=== PATIENT | female | born 1945 | race Caucasian/White ===

== ENCOUNTER 2022-07-25 10:11 | Observation (INO) ==
--- NOTE | 2022-07-07 14:19 | PAT Medication Instructions ---
Medication Instructions Date of Service July 07, 2022 Home Medications Prevagen 1 dose PO QAM calcium carbonate 500 mg calcium (1,250 mg) tablet 500 mg PO DAILY coenzyme Q10 100 mg capsule (Co Q-10) 100 mg PO QAM horse chestnut 300 mg capsule 300 mg PO QAM lutein 40 mg capsule 40 mg PO QAM PreserVision AREDS-2) 1 tab PO BID Tart Thapa) 1 cap PO DAILY STOP taking 2 weeks before surgery (or as soon as possible if surgery is within 2 weeks) Prevagen 1 dose PO QAM coenzyme Q10 100 mg capsule (Co Q-10) 100 mg PO QAM horse chestnut 300 mg capsule 300 mg PO QAM lutein 40 mg capsule 40 mg PO QAM PreserVision AREDS-2) 1 tab PO BID Tart Thapa) 1 cap PO DAILY DO NOT take the morning of surgery calcium carbonate 500 mg calcium (1,250 mg) tablet 500 mg PO DAILY Other Notes If you have any questions please call us at [phone] or [phone] or [phone] or [phone]
--- NOTE | 2022-07-13 10:24 | Anesthesiology Consultation ---
Date of Service July 13, 2022 Assessment & Plan (1) Encounter for pre-operative examination: Chart Review Chart Review: Acceptable Risk for Surgery and Patient seen in Pre Admission Testing -Pt is NOT an Outpatient Joint candidate due to age Per PAT appt on 07/13/22, patient denies any recent travel or large group activities. Pt is vaccinated for Covid. Will leave to surgeon's discretion if preop Covid testing needed. Educated on importance of using Covid precautions one week prior to surgery Teaching & Discussion Pre-Anesthesia Teaching/Discussion Notes: Instructed NPO after midnight before surgery,except medications with 15 cc of water. Medication instructions provided according to the PAT guidelines. History Surgery Operation Date: 07/25/22 08:50 Proposed Procedures p Left Total Knee Arthroplasty - Dru Carmichael MD Height/Weight Height: 5 ft 3 in Weight: 65.4 kg Allergies Allergy/AdvReac Type Severity Reaction Status Date / Time No Known Allergies Allergy Verified 07/07/22 12:49 Medications Home Medications Medication Instructions Recorded Confirmed Last Taken Prevagen 1 dose PO QAM 07/07/22 07/07/22 Unknown calcium carbonate 500 mg calcium 500 mg PO DAILY 07/07/22 07/07/22 Unknown (1,250 mg) tablet coenzyme Q10 100 mg capsule (Co 100 mg PO QAM 07/07/22 07/07/22 Unknown Q-10) horse chestnut 300 mg capsule 300 mg PO QAM 07/07/22 07/07/22 Unknown lutein 40 mg capsule 40 mg PO QAM 07/07/22 07/07/22 Unknown vit C 250 mg-vit E 90 mg-zinc 40 1 tab PO BID 07/07/22 07/07/22 Unknown mg-copper 1 [id number] capsule (PreserVision AREDS-2) vit C 30 mg-s.thapa 250 mg-celery 1 cap PO DAILY 07/07/22 07/07/22 Unknown seed 75 mg-grape seed extrt capsule (Tart Thapa) Past Medical History Medical History Arthritis Varicose veins of both lower extremities Stable Exercise / Class Metabolic Activity II 4-5 Yardwork/Stairs/Walk up hill (one flight of stairs - no chest pain or SOB) Past Family History Family History Mother Myocardial infarction Father Myocardial infarction Past Surgical History Surgical History History of arthroscopy left shoulder History of section x3 History of colonoscopy History of tooth extraction with implant Past Anesthesia History No Hx of Anesthesia Complications and No Family Hx of Anesthesia Complications History of PONV No Hx of PONV and No Hx of Motion Sickness Social History Smoking Status: Never smoker Do You Dip or Chew Tobacco: No Hx Alcohol Use: No Hx Substance Use: No substance use type: does not use Review of Systems Occ snoring- no hx of sleep study Patient denies chest pain, shortness of breath, dyspnea on exertion, reflux, cough, wheezing, palpitations. No hx of seizures, stroke, CA. No hx of blood clots or blood transfusions Physical Exam Vital Signs VITALS BP 143/72 P 62 TEMP 98.2 SP02 99% RESP 16 Constitutional no acute distress ENMT Mouth: no TMJ clicking Thyromental Distance: > or= 3.5 Finger Breadths (3.5) Mallampati Class: II Permanent implant to left side Neck neck extension not limited Respiratory normal respiratory effort; no respiratory distress Auscultation: lungs clear to auscultation bilaterally; no wheezes Cardiovascular Rate/Rhythm: regular rate and regular rhythm Heart Sounds: no murmur Vessels: no carotid bruit Musculoskeletal Spine: no pain with cervical ROM Extremities: extremities normal to inspection Psychiatric Orientation: alert Lab Results Anesthesia Preop Results Results Anesthesia Widget: WBC 7.32 K/ul (4.8-10.8) 07/13/22 Hgb 13.5 g/dl (12.0-16.0) 07/13/22 Hct 42.0 % (37.0-47.0) 07/13/22 Plt 312 K/uL (130-400) 07/13/22 Na 140 mmol/L (136-145) 07/13/22 K 4.6 mmol/L (3.5-5.1) 07/13/22 Cl 104 mmol/L (98-107) 07/13/22 CO2 31 mmol/L (21-32) 07/13/22 BUN 13 mg/dl (6-23) 07/13/22 Creat 0.79 mg/dl (0.6-1.2) 07/13/22 Glucose Level 90 mg/dl (70-99(Fasting)) 07/13/22 PT 10.9 Seconds (9.0-12.0) 07/13/22 PTT 26.8 Seconds (21.0-31.0) 07/13/22 INR 1.0 (0.9-1.1) 07/13/22 Blood Type O Negative 07/13/22 Antibody Screen NEGATIVE 07/13/22 Testing Electrocardiogram Date: 07/13/22 SR with 1st degree AVB at 60bpm Otherwise normal EKG per cardio Chest X-Ray Date: 07/13/22 Findings: + NAD FINDINGS: Cardiac mediastinal and hilar silhouettes are within normal limits. Atherosclerosis of aorta. Unchanged mild biapical pleural thickening. No pneumothorax, pleural effusion, airspace consolidation or pulmonary edema. Bones of the chest appear grossly intact with mild spondylitic spurring of the spine. COVID-19 Risk Screen Screening Information COVID-19 Screen Date: 07/13/22 Exposure 21 Days Family/Household +COVID Last 21 Days: No Exposure 10 Days Any COVID Exposure Last 10 Days: No Symptoms Last 10 Days Experienced COVID Sx Last 10 Days: No + COVID 0-90 Days COVID + in Last 0-90 Days: No Risk Plan COVID Risk Plan: No Risk Identified Patient Education COVID Preop Screening Education Complete: Yes
[~2022-07-25 10:11] MED LIST: ACETAMINOPHEN 500 MG TAB PO SCH; BUPIVACAINE 0.5 % 5 MG/1 ML PF 10ML VIAL ONE; BUPIVACAINE LIPOSOME/PF 266 MG, BUPIVACAINE/EPINEPHRINE 50 ML, SODIUM CHLORIDE 0.9% PF ... INFIL SCH; CeleBREX 200 MG CAP PO SCH; DEXAMETHASONE SOD INJ 4 MG/ML VIAL IV SCH; FAMOTIDINE 20 MG TAB PO SCH; General Order Problem(s) SCH; LR 500ML BOLUS, THEN 15ML/HR IV SCH; LR 60ML/HR IV SCH; METOCLOPRAMIDE HCL 10 MG TABLET PO SCH; ROPIVACAINE 0.5% 5 MG/ML 30 ML VIAL ONE; TRANEXAMIC ACID 1,000 MG **IV Intra-op IV SCH; ceFAZolin 2000MG 2,000 MG/15 ML SYR IV SCH; dexAMETHasone 10 MG in SYRINGE 0 ML IV SCH
--- NOTE | 2022-07-25 10:27 | History & Physical Bridge Note ---
Date of Service July 25, 2022 History & Physical Bridge Note I have examined the patient, reviewed the History & Physical and in the interval since the performance of the History & Physical I have noted the following changes of clinical significance: no changes noted
[2022-07-25] MEDS ORDERED: SODIUM CHLORIDE 0.9% PF 50 ML VIAL ONE (10:30)
[2022-07-25] MEDS ORDERED: fentaNYL citrate PF 100 MCG/2 ML VIAL ONE (10:30)
[2022-07-25] MEDS ORDERED: BUPIVACAINE LIPOSOME 1.3% 266 MG/20 ML VIAL ONE (10:30)
[2022-07-25] MEDS ORDERED: BUPIVACAINE/EPINEPHRINE 0.25% 1:200,000 30 ML VIAL ONE (10:30)
[2022-07-25] MEDS ORDERED: MIDAZOLAM HCL 1 MG/ML 2ML VIAL ONE (10:30)
[2022-07-25] MEDS ORDERED: LIDOCAINE 2% MPF LOCAL 5 ML VIAL ONE (10:31)
[2022-07-25] MEDS ORDERED: PROPOFOL IV EMULSION 10 MG/ML 20 ML VIAL IV ONE (10:31)
[2022-07-25] MEDS ORDERED: ONDANSETRON INJ 2 MG/ML 2 ML VIAL IV PRN ×2 (11:41→15:58)
[2022-07-25] MEDS ORDERED: ePHEDrine sulfate 50 MG/ML AMP IV PRN (11:41)
[2022-07-25] MEDS ORDERED: ATROPINE SULFATE 0.1 MG/ML 10ML SYR IV PRN (11:41)
[2022-07-25] MEDS ORDERED: fentaNYL citrate PF 100 MCG/2 ML VIAL IV PRN (11:41)
[2022-07-25] MEDS ORDERED: ePHEDrine sulfate 50 MG/ML SYR ONE (12:51)
--- NOTE | 2022-07-25 14:19 | Operative Report ---
PG Post Operative Report Pre & Post Diagnosis Operation Date: 07/25/22 12:30 Pre-Op Diagnosis: Left Knee Degenerative Joint Disease Post-Op Diagnosis: Left Knee Degenerative Joint Disease I identified the patient and participated in the time-out.: Yes Procedure Operation Date: 07/25/22 12:30 Actual Procedures p Left Total Knee Arthroplasty, Cemented(Left) - Dru Carmichael MD Surgeon Dru Carmichael MD [employer] Santi Mckinnon PA-C Estimated Blood Loss 50 Findings Consistent with Post-Op Diagnosis Operative findings revealed advanced left knee DJD. As she had extensive grade 4 [id number]-[id number] disease of the medial and patellofemoral compartments. She had a varus deformity to her knee. Large knee joint effusion. Specimens Left knee sent for pathology Anesthesia Type Spinal MAC Complications none Disposition Accompanied Patient To Recovery: No Indications Patient 76-year-old female has several year history of increasing left knee pain discomfort which which has become unresponsive to conservative care. X-rays show advanced left knee DJD. She failed conservative measures and elected proceed with left total knee arthroplasty. Description of Procedure Operative implants consist of: 1 Biomet Vanguard size 62.5 left posterior stabilized femoral component. 2. Biomet size 67 tibial tray. 3. 10 mm posterior stabilized polyethylene insert. 4. 28 x 8 all poly patella. The patient was taken the operating, identified, and placed on the operating table supine position but all contractors were appropriately padded. IV antibiotics were provided by the anesthesia team. A left thigh high tourniquet was placed. The left lower extremity was then prepped and draped in usual sterile fashion. The left leg was elevated exsanguinated with use of an Esmarch and the tourniquet was placed at 300 mmHg. An anterior approach the left knee was then performed through a longitudinal incision centered over the patella. Sharp dissection was carried through subcutaneous tissue down the extensor mechanism. A medial parapatellar arthrotomy incision was made. Some subperiosteal dissection was carried out medially. The fat pad was resected from Neath patella tendon. The lateral patellofemoral ligament was released. Patella subluxated laterally and the knee was flexed. The osteophytes taken off distal femur. The ACL and PCL then released and the distal femur and the tibia subluxated anteriorly. The external tibial alignment jig was then placed in the interface the tibia and adjusted 14 mm medially. Proximal tibial cut was made remove about a millimeter of bone from most deficient aspect of the medial tibial plateau. The tibia was sized to a size 67. Attention drawn the femur. The distal femur stem with a sharp drill. Intramedullary canal was suction. A right 5 degree valgus cutting guide was placed. The distal femoral cutting block was pinned in place. Distal femoral cut was made to take an additional 3 mm of bone off distal femur. The femur was then sized to a size 62.5. The AP cutting block was pinned parallel to the epicondylar axis which was 3 degrees of external rotation. Anterior cut, anterior, posterior cut, posterior chamfer cuts were made. The box cutting guide was placed in just slight lateral and the box cut was made. The knee was flexed. The remnants of the medial and lateral menisci were excised. The osteophytes taken off the posterior aspect the femur. A trial femoral component was placed. The tibial tray was pinned in maximum external rotation and the drill and stem punch used to create defect in proximal tibia for the tibial tray. The knee was then trialed and the 10 mm insert fit most appropriately. Attention drawn to the patella. The patella was cleaned of all soft tissues. Patella thickness measured 18 mm in thickness was cut down to 12. It was sized to a size 28 patella. The lug holes were drilled for the 28 patella. The lateral osteophyte was removed. Patella button was placed. Knee was taken through range of motion and the patella tracked nicely with no thumbs test. Attention drawn to place the permanent components. Nupathe all trial components were removed. Bone plug was placed in the distal femur limit blood loss. Double batch Palacos G cement was mixed. A Biomet Vanguard size 62.5 left posterior stabilized femoral component, size 67 tibial tray, a 10 mm posterior stabilized polyethylene insert, and a 28 x 8 all Paller patella then cemented in place. Knee was brought out in full extension till cement hardened. Final cement check was then performed. The pericapsular tissues were injected with total 100 cc of combination of 20 cc of Exparel, 30 cc normal saline, 50 cc of quarter percent Marcaine with epinephrine. Patient did receive 1 g tranexamic acid. The tourniquet was let down for final tourniquet time 55 minutes. Hemostasis assured with electrocautery. Extensor mechanism closed with combination 1 PDS suture #1 Vicryl suture in a [id number] fashion. Extensor mechanism checked found to be intact the subcutaneous tissue then closed with 2 Dexon suture in a buried interrupted fashion and the skin was closed skin dominique. Leg was then cleaned and dried a sterile dressing was Xeroform, 4 fours, sterile cast padding, Tavo bandage were applied. Patient then transferred to the recovery room in stable condition. The patient tolerated procedure well and there are no complications. Santi Mckinnon, my physician lead assistant manager, was present for the entire procedure. His assistance was essential and required for appropriate patient positioning, prepping and draping, surgical exposure, performing the technical details of the operation, placement the implants, closure of the wound, and placement of the sterile bandage. I attest to the content of the Intraoperative Record and any orders documented therein. Any exceptions are noted below.
--- NOTE | 2022-07-25 15:03 | XRay Report ---
XR knee LT 1 or 2V routine HISTORY: 76 years-old Female Surgical Post Op status post knee total joint arthroplasty. COMPARISON: 07/03/2022 TECHNIQUE: 2 views of the left knee FINDINGS: Total joint arthroplasty with patellar resurfacing. Anterior midline skin dominique are noted along wit h expected postoperative soft tissue swelling and deep tissue air. No acute fracture, dislocation or opaque foreign body. IMPRESSION: Expected postoperative changes. ACT 112: Negative or not required by law. The above report was generated using voice recognition software. It may contain grammatical, syntax o r spelling errors. Electronically signed by: Moises Farooq M.D. 07/25/2022 3:01 PM
--- NOTE | 2022-07-25 15:42 | Anesthesiology Progress Note ---
Date of Service July 25, 2022 Anesthesia Post Procedure Vital Signs Vital Signs: Temp Pulse Pulse Resp BP Pulse Ox O2 Del Method 07/25/22 15:40 64 16 123/64 98 Room Air 07/25/22 15:30 97.3 F L 67 17 120/60 99 Room Air 07/25/22 15:20 55 L 13 126/58 L 96 Room Air 07/25/22 15:10 61 16 116/59 L 96 Room Air 07/25/22 15:00 61 16 120/50 L 98 Room Air 07/25/22 14:50 71 13 112/67 99 Room Air 07/25/22 14:40 67 17 111/75 97 Room Air 07/25/22 14:30 61 12 130/53 L 97 Room Air 07/25/22 14:20 64 12 124/46 L 99 Room Air 07/25/22 14:10 55 L 12 124/51 L 100 Oxymask 07/25/22 14:01 97.5 F L 62 20 130/56 L 100 Oxymask 07/25/22 10:32 98.6 F 70 20 153/68 H 97 Room Air O2 Flow Rate 07/25/22 15:40 07/25/22 15:30 07/25/22 15:20 07/25/22 15:10 07/25/22 15:00 07/25/22 14:50 07/25/22 14:40 07/25/22 14:30 07/25/22 14:20 07/25/22 14:10 11 07/25/22 14:01 11 07/25/22 10:32 Transfer of Care Handoff Completed per policy Notes Mental Status: alert / awake / arousable and participated in evaluation Patient Amnestic to Procedure: Yes Nausea / Vomiting: adequately controlled Pain: adequately controlled Airway Patency, RR, SpO2: stable & adequate BP & HR: stable & adequate Hydration State: stable & adequate Neuraxial Anesthesia: was administered and sensory block is resolving Anesthetic Complications: no major complications apparent and Pt Satisfied with anesthetic care
[2022-07-25] MEDS ORDERED: bisacodyL 10 MG SUPP PR PRN (15:58)
[2022-07-25] MEDS ORDERED: METOCLOPRAMIDE HCL INJ 5 MG/ML 2 ML VIAL IV PRN (15:58)
[2022-07-25] MEDS ORDERED: HYDROmorphone INJ 0.5 MG/0.5 ML SYR IV PRN (15:58)
[2022-07-25] MEDS ORDERED: ALUMINUM/MAGNESIUM SUSP 30 ML UDC PO PRN (15:58)
[2022-07-25] MEDS ORDERED: MAGNESIUM HYDROXIDE SUSP 30 ML UDC PO PRN (15:58)
[2022-07-25] MEDS ORDERED: oxyCODONE HCL IR 5 MG TAB (IMMEDIATE RELEASE) PO PRN (15:58)
[2022-07-25] MEDS ORDERED: NALOXONE HCL 0.4 MG/1 ML VIAL/CARP IV PRN (15:58)
[2022-07-25] MEDS: SODIUM CHLORIDE 0.9% 1000ML 1,000 ML IV SCH (16:27)
[2022-07-25] MEDS: ASCORBIC ACID 500 MG TAB PO SCH (16:56)
[2022-07-25] MEDS ORDERED: TRANEXAMIC ACID / 0.7% NACL 1,000 MG/100 ML BAG IV SCH (20:00)
[2022-07-25] MEDS: DOCUSATE SODIUM 100 MG CAP PO SCH (20:11)
[2022-07-25] MEDS: ASPIRIN 81 MG ECTAB PO SCH (20:11)
[2022-07-25] MEDS: ceFAZolin 1000MG 1,000 MG/7.5 ML SYR IV SCH (20:25)
[2022-07-25] MEDS ORDERED: NON-FORMULARY MEDICATION (Vit C,E-Zn-Coppr-Lutein-Zeaxan [Preservision Areds-2] 250-90-40- PO SCH (21:00)
[2022-07-25] MEDS ORDERED: SENNA 8.6 MG TAB PO SCH (21:00)
[2022-07-25] MEDS: ACETAMINOPHEN 500 MG TAB PO SCH (22:03)
[2022-07-25] MEDS: KETOROLAC TROMETHAMINE 15 MG/ML VIAL IV SCH (22:04)
[2022-07-26] MEDS: SODIUM CHLORIDE 0.9% 1000ML 1,000 ML IV SCH ×2 (01:59→12:39)
[2022-07-26] MEDS: ceFAZolin 1000MG 1,000 MG/7.5 ML SYR IV SCH (03:27)
[2022-07-26] MEDS: KETOROLAC TROMETHAMINE 15 MG/ML VIAL IV SCH ×2 (03:28→10:15)
[2022-07-26] MEDS: ACETAMINOPHEN 500 MG TAB PO SCH (05:55)
[2022-07-26 07:31] LABS: Hematocrit (blood only) 36.4 % (37.0-47.0); Mean Corpuscular Hemoglobin 29.6 pg (25.0-34.0); Mean Corpuscular Volume 89.7 fL (80.0-100.0); Platelet Count 286 K/uL (130-400); RDW Coefficient of Variation 12.7 % (11.5-14.5); Red Blood Count 4.06 M/uL (4.20-5.40); White Blood Count 15.34 K/ul (4.8-10.8)
[2022-07-26] MEDS ORDERED: dexAMETHasone 10 MG in SYRINGE 0 ML IV SCH (08:00)
[2022-07-26] MEDS: ASCORBIC ACID 500 MG TAB PO SCH (08:08)
[2022-07-26] MEDS: DOCUSATE SODIUM 100 MG CAP PO SCH (08:08)
[2022-07-26] MEDS: ASPIRIN 81 MG ECTAB PO SCH (08:08)
[2022-07-26 08:18] LABS: BUN Creatinine Ratio 16.7 (10-20); Calcium 9.1 mg/dl (8.6-10.3); Creatinine Clr Calc Pharmacy 55.8 ml/min; Est GFR (African American) 85.6 ml/min; Est GFR (Non-African American) 73.8 ml/min; Potassium 3.8 mmol/L (3.5-5.1)
--- NOTE | 2022-07-26 08:40 | Progress Notes ---
SUBJECTIVE: A 76-year-old female, postoperative day 1 from a left knee replacement. She is doing qu ite well. Pain is controlled. No chest pain or shortness of breath. Not feeling dizzy or lighthead ed. OBJECTIVE: VITAL SIGNS: Temperature 36.7. Vital signs are stable. GENERAL: Shows a pleasant middle-aged female. She is sitting up in her bedside chair and looks quit e comfortable this morning. LUNGS: Clear to auscultation. HEART: Has a regular rate and rhythm. ABDOMEN: Soft, nontender, nondistended. EXTREMITIES: Grossly neurovascularly intact except as follows. Examination of the left leg reveals the dressing to be clean, dry and intact. She can dorsiflex and plantarflex her foot appropriately. She can do a good straight leg raise. LABORATORY DATA: Hemoglobin is 12.0. Hematocrit 36.4. Electrolytes are stable. ASSESSMENT: A 76-year-old white female, postoperative day 1 from a left knee replacement, doing quit e well. Pain is controlled. She is neurologically intact. PLAN: 1. DVT prophylaxis includes thigh-high TEDs, SCDs, and aspirin twice a day. 2. PT/OT, weightbear as tolerated. Left total knee protocol. 3. Pain control, doing okay with current pain regimen. 4. Disposition: Plan to discharge to home with some home health later today if she does okay in the rapy. Job ID: [id number]
[2022-07-26] MEDS ORDERED: DOCUSATE SODIUM/SENNA 50/8.6MG TAB PO SCH (09:00)
[2022-07-26] MEDS ORDERED: CALCIUM CARBONATE 500 MG CHEWABLE TAB PO SCH (09:00)
[2022-07-26] MEDS ORDERED: MULTIVITAMIN TAB PO SCH (09:00)
[2022-07-26] MEDS ORDERED: HORSE CHESTNUT PO SCH (09:00)
[2022-07-26] MEDS ORDERED: NON-FORMULARY MEDICATION (Prevagen 1 EA) PO SCH (09:00)
[2022-07-26] MEDS ORDERED: LUTEIN 40 MG PO SCH (09:00)
[2022-07-26] MEDS ORDERED: NON-FORMULARY MEDICATION (Coenzyme Q10 [Co Q-10] 100 mg Capsule) PO SCH (09:00)
--- NOTE | 2022-07-28 07:54 | Discharge Summary ---
Date of Service July 28, 2022 Discharge Data Procedures Performed Operation Date: 07/25/22 12:30 Actual Procedures p Left Total Knee Arthroplasty, Cemented(Left) - Dru Carmichael MD Hospital Course (1) Status post total left knee replacement: This is a 76 year old patient admitted on 07/25/22 and underwent total knee arthroplasty. She tolerated the procedure well and there were no complications. Transferred to the PACU post op and later to the orthopedic floor for further care. She was given ancef for antibiotic prophylaxis. She was also given ZOHAIB stockings, SCDs, and aspirin for DVT prophylaxis. Hemoglobin, hematocrit, and vital signs were monitored during her hospital stay and remained stable. Did not require any blood transfusions. There were no complications during her hospital stay. By post op day #1 the patient was tolerating a regular diet, pain was reasonably controlled with oral pain medicine, and she was participating in physical therapy. On post op day #1 the patient was discharged home and set up with home health care. She was given printed discharge instructions including prescriptions for extra strength tylenol, aspirin, cefadroxil, ketorolac, zofran, senokot, and oxycodone. Continue physical therapy, weight bearing as tolerated. Continue ZOHAIB stockings. Follow up approximately 2 weeks post op or sooner if there are problems or concerns. Coding Level of Care Code None Diagnoses Status post total left knee replacement Z96.652
== END 2022-07-26 13:30 | disposition home health service (06) ==
LOC: 3E 10:11 → ASU 10:11